=== PATIENT | female | born 1985 | race Caucasian/White ===

== ENCOUNTER 2016-12-03 14:42 | Emergency (ER) | payer OTHER ==
[2016-12-03 16:07] LABS: BASOPHILS 0.4 % (0-2); EOSINOPHILS 4.7 % (0-7); HEMATOCRIT 39.2 % (36.0-48.0); HEMOGLOBIN 13.4 g/dL (12-16); IMMATURE GRANULOCYTES 0.3 % (0-5); LYMPHOCYTES 37.1 % (15-50); MCH 31.5 pg (26.0-34.0); MCHC 34.2 g/dL (31.0-37.0); MEAN PLATELET VOLUME 9.9 fL (7.4-10.4); MONOCYTES 6.9 % (2-11); NEUTROPHILS 50.6 % (40-80); PLATELET COUNT 254 10x3/uL (130-400); RBC 4.26 10x6/uL (4.00-5.40); RDW 12.4 % (11.5-14.5); WBC 7.8 10x3/uL (4.8-10.8)
[2016-12-03 16:35] LABS: HCG SERUM NEGATIVE (NEGATIVE)
== END 2016-12-03 17:26 | disposition home or self-care (01) ==
LOC: D.ER 14:42
PROVIDERS: Emergency Medicine
DX: O26.899 Other specified pregnancy related conditions, unspecified trimester (principal); O03.9 Complete or unspecified spontaneous abortion without complication; F32.9 Major depressive disorder, single episode, unspecified; F41.9 Anxiety disorder, unspecified; F17.200 Nicotine dependence, unspecified, uncomplicated; R10.9 Unspecified abdominal pain

== ENCOUNTER 2018-04-25 15:44 | Inpatient (IN) | payer MEDICAID ==
[~2018-04-25] VITALS: Ht 160 cm; Wt 72.6 kg
--- NOTE | ~2018-04-25 | DS ---
PATIENT:MARI LEVY :85 MEDICAL RECORD: [id number] DISCHARGE SUMMARY ADMISSION DATE: 04/25/18 DISCHARGE DATE: 04/27/18 DATE OF ADMISSION: 04/25/2018 DATE OF DISCHARGE: 04/27/2018 ADMISSION DIAGNOSES: 1. at or near term. 2. Active labor. 3. Poor care. 4. Drug screen positive for methamphetamine. DISCHARGE DIAGNOSES: 1. at or near term. 2. Active labor. 3. Poor care. 4. Drug screen positive for methamphetamine. PROCEDURE: Vaginal delivery. ATTENDING: Nadege Lopez MD HISTORY OF PRESENT ILLNESS: See the H&P in the chart. SUMMARY OF HOSPITALIZATION: The patient was admitted to the hospital and labored and delivered without incident. The patient received a psychologist social consult while hospitalized. At the time of discharge, the patient reports minimal mild lochia with adequate pain control with standard medications. The patient will be recommended to use [id number] medications and we have discussed contraception. Follow up in 6 weeks. TRANSINT:[id number] Voice Confirmation ID: [id number] DOCUMENT ID: [id number] NADEGE LOPEZ MD at 1731 CC: [id number] DICTATION DATE: 04/27/18 1550 HOME BUILDER: 04/28/18 0855 DIS IN 04/27/18 [id number] [place] [address]
--- NOTE | ~2018-04-25 | OP ---
PATIENT NAME: MARI LEVY MEDICAL RECORD: [id number] :85 LOCATION:[id number] ADMISSION DATE:04/25/18 SURGEON: NADEGE LOPEZ MD DATE OF OPERATION: 04/25/2018 PREDELIVERY DIAGNOSES: 1. at or near term. 2. No care. 3. Meconium-stained fluid. 4. Nonreassuring tracing. POSTDELIVERY DIAGNOSES: 1. at or near term. 2. No care. 3. Meconium-stained fluid. 4. Nonreassuring tracing. PROCEDURE PERFORMED: Vacuum-assisted vaginal delivery. ANESTHESIA: Continuous lumbar epidural. ANESTHESIOLOGIST: Dr. Parker. FINDINGS: A viable male infant delivered in [place] presentation with vacuum assist over a single expulsive effort. The vacuum was applied when the vertex is on the pelvic floor. Weight of the , 6 pounds 6 ounces with Apgars of 7 and 8. First-degree laceration of the left labia repaired with 4-0 Vicryl. One stitch of 4-0 chromic was used to approximate the very tip of the laceration. Placenta was spontaneous and intact with meconium-staining noted. ESTIMATED BLOOD LOSS: 350 cc. DISPOSITION: Mother recovered in the room and infant to nursery with pediatrics in attendance. TRANSINT:[id number] Voice Confirmation ID: [id number] DOCUMENT ID: [id number] NADEGE LOPEZ MD at 1225 CC: [id number] DICTATION DATE: 04/25/182037 CLAIMS ADJUSTOR: 04/26/18 0105 ADM IN [id number] [place] [address]
[2018-04-25 16:42] LABS: UDS - AMPHET POSITIVE QUAL (NEGATIVE); UDS - BARB NEGATIVE QUAL (NEGATIVE); UDS - BENZO NEGATIVE QUAL (NEGATIVE); UDS - COCAINE NEGATIVE QUAL (NEGATIVE); UDS - OPIATE NEGATIVE QUAL (NEGATIVE); UDS - PCP NEGATIVE QUAL (NEGATIVE); UDS - THC NEGATIVE QUAL (NEGATIVE)
[2018-04-25 17:01] LABS: APPEARANCE CLEAR (CLEAR); BILIRUBIN NEGATIVE (NEGATIVE); COLOR YELLOW (YELLOW); GLUCOSE NEGATIVE (NEGATIVE); KETONE NEGATIVE (NEGATIVE); NITRITE NEGATIVE (NEGATIVE); PROTEIN NEGATIVE (NEGATIVE); SPECIFIC GRAVITY 1.015 (1.005-1.020); UROBILINOGEN NORMAL (NORMAL)
[2018-04-25 17:03] LABS: WHITE CELLS - URINE 0-5 /hpf (0-5)
[2018-04-25 17:04] LABS: BACTERIA MODERATE /hpf (NONE SEEN); EPITHELIAL CELLS 0-5 /hpf (0-5); RED CELLS - URINE OCC /hpf (0-5)
[2018-04-25 17:15] LABS: MCH 29.2 pg (26.0-34.0); MCHC 33.3 g/dL (31.0-37.0); MCV 87.6 fL (80.0-100.0); MEAN PLATELET VOLUME 11.6 fL (7.4-10.4); RBC 4.11 10x6/uL (4.00-5.40); RDW 13.8 % (11.5-14.5); WBC 13.1 10x3/uL (4.8-10.8)
[2018-04-25 17:32] LABS: ALBUMIN 2.2 g/dL (3.4-5.0); ALKALINE PHOSPHATASE 203 U/L (46-116); ALT (SGPT) 39 U/L (10-68); BILIRUBIN - TOTAL 0.19 mg/dL (0.2-1.3); CALC OSMOLALITY 274 mosm/kg (275-300); CALCIUM 8.7 mg/dL (8.5-10.1); CARBON DIOXIDE 26.2 mmol/L (21.0-32.0); CHLORIDE - SERUM 102 mmol/L (98-107); CREATININE - SERUM 0.7 mg/dL (0.6-1.3); GLUCOSE 120 mg/dL (74-106); POTASSIUM - SERUM 4.2 mmol/L (3.5-5.1); PROTEIN - SERUM 6.3 g/dL (6.4-8.2); SODIUM 137 mmol/L (136-145); UREA NITROGEN 13 mg/dL (7-18); eGFR NON AFRICAN AMERICAN > 90 mL/min (90-120)
[2018-04-25] MEDS ORDERED: BUPRENORPHINE HC8 MG SL (18:23)
[2018-04-25] MEDS ORDERED: PREPLUS CA-FE1 EACH PO (18:23)
[2018-04-25] MEDS ORDERED: KLONOPIN1 MG PO (18:24)
[2018-04-25] MEDS ORDERED: AMOXICILLIN875 MG (18:25)
[2018-04-25 19:06] VITALS: BP 133/87; Ht 160 cm; Wt 72.6 kg
[2018-04-25 21:35] LABS: HIV 1 & 2- RAPID SCREEN NEGATIVE (NEGATIVE)
[2018-04-25 23:15] VITALS: BP 145/98
[2018-04-25 23:42] VITALS: BP 145/97
[2018-04-26 03:45] VITALS: BP 150/91
[2018-04-26 06:55] LABS: BASOPHILS 0.1 % (0-2); EOSINOPHILS 0.9 % (0-7); HEMATOCRIT 32.1 % (36.0-48.0); HEMOGLOBIN 10.3 g/dL (12-16); IMMATURE GRANULOCYTES 0.6 % (0-5); LYMPHOCYTES 20.4 % (15-50); MCH 28.4 pg (26.0-34.0); MCHC 32.1 g/dL (31.0-37.0); MCV 88.4 fL (80.0-100.0); MEAN PLATELET VOLUME 11.3 fL (7.4-10.4); MONOCYTES 5.2 % (2-11); NEUTROPHILS 72.8 % (40-80); PLATELET COUNT 224 10x3/uL (130-400); RBC 3.63 10x6/uL (4.00-5.40); RDW 13.8 % (11.5-14.5); WBC 13.9 10x3/uL (4.8-10.8)
[2018-04-26 07:35] VITALS: BP 152/98
[2018-04-26 10:43] LABS: APPEARANCE CLEAR (CLEAR); BILIRUBIN NEGATIVE (NEGATIVE); COLOR YELLOW (YELLOW); GLUCOSE NEGATIVE (NEGATIVE); KETONE NEGATIVE (NEGATIVE); NITRITE NEGATIVE (NEGATIVE); PROTEIN NEGATIVE (NEGATIVE); UROBILINOGEN NORMAL (NORMAL)
[2018-04-26 12:43] VITALS: BP 151/97
[2018-04-26 20:00] VITALS: BP 139/96
[2018-04-27 07:29] LABS: HEPATITIS C ANTIBODY >11.0 S/CO RAT (0.0-0.9); RAPID PLASMA REAGIN Non Reactive (Non Reactive)
[2018-04-27 07:55] VITALS: BP 135/87
[2018-04-27 13:15] LABS: RUBELLA IGG 1.06 index (Immune >0.99)
[2018-04-27] MEDS ORDERED: CELEXA10 MG PO (16:39)
[2018-04-28 16:14] LABS: HGB SOLUBILITY (SICKLE SCREEN) Negative (Negative)
== END 2018-04-27 18:40 | disposition home or self-care (01) | DRG 806 ==
LOC: D.LDO 15:44 → D.LD 17:57 → D.WS 17:57
PROVIDERS: Obstetrics & Gynecology
PROC: 10D07Z6 Extraction of Products of Conception, Vacuum, Via Natural or Artificial Opening (ICD-10-PCS; principal; 2018-04-25)
PROC: 0HQ9XZZ Repair Perineum Skin, External Approach (ICD-10-PCS; 2018-04-25)
DX: O99.344 Other mental disorders complicating childbirth (principal); O41.03X0 Oligohydramnios, third trimester, not applicable or unspecified; Z37.0 Single live birth; O98.42 Viral hepatitis complicating childbirth; O99.324 Drug use complicating childbirth; Z3A.38 38 weeks gestation of pregnancy; B19.20 Unspecified viral hepatitis C without hepatic coma; F32.9 Major depressive disorder, single episode, unspecified; O99.214 Obesity complicating childbirth; O77.0 Labor and delivery complicated by meconium in amniotic fluid; O76 Abnormality in fetal heart rate and rhythm complicating labor and delivery; O70.0 First degree perineal laceration during delivery; F15.90 Other stimulant use, unspecified, uncomplicated